=== PATIENT | male | born 1970 ===

== ENCOUNTER 2024-03-05 07:06 | Emergency (ER) | payer OTHER, SELFPAY ==
[2024-03-05 07:18] VITALS: BP 100/64
[2024-03-05 07:37] LABS: % Basophils 0.4 % (0-2); % Eosinophils 1.1 % (0-6); % Immature Granulocytes 0.2 % (0-0.5); % Lymphocytes 8.6 % (20.5-51.1); % Monocytes 8.4 % (1.7-9.3); % Neutrophils 81.3 % (42.2-75.2); Absolute Eosinophils 0.1 10^3/uL (0-0.7); Absolute Lymphocytes 0.4 10^3/uL (1.2-3.4); Absolute Monocytes 0.4 10^3/uL (0.1-0.6); Absolute Neutrophils 3.9 10^3/uL (1.4-6.5); Hematocrit 35.7 % (39.0-52.0); Hemoglobin 12.9 g/dL (13.0-18.0); Mean Corp Hgb Conc. 36.1 g/dL (33.0-37.0); Mean Corpuscular Hgb 30.6 pg (27.0-31.0); Mean Corpuscular Volume 84.6 fL (80.0-94.0); Mean Platelet Volume 8.8 fL (7.4-10.4); Nucleated Red Blood Cells % 0 % (-); Platelet Count 221 10^3/uL (130-400); Red Blood Cell Count 4.22 10^6/uL (4.70-6.10); Red Cell Dist. Width 12.8 % (11.5-14.5); White Blood Cell Count 4.7 10^3/uL (4.8-10.8)
[2024-03-05 07:57] LABS: ALT (SGPT) 32 U/L (0-50); AST (SGOT) 28 U/L (17-59); Alkaline Phosphatase 48 U/L (38-126); Blood Urea Nitrogen 15 mg/dl (9-20); Calcium 8.9 mg/dl (8.4-10.2); Carbon Dioxide 23 mmol/L (22-30); Chloride 100 mmol/L (98-107); Glucose 136 mg/dl (70-99); Potassium 3.9 mmol/L (3.5-5.1); Sodium 133 mmol/L (135-145); Total Bilirubin 0.4 mg/dl (0.2-1.3); Total Protein 6.5 g/dl (6.3-8.2); eGFR > 60.00
[2024-03-05 08:01] LABS: Troponin I < 0.012 ng/ml
[2024-03-05 08:06] LABS: COVID-19 Antigen Negative (Negative)
--- NOTE | 2024-03-05 08:23 | ED.GENMED ---
History of Present Illness
General
Chief Complaint: Fever
Source: patient
Time Seen by Provider: 03/05/24 08:11
History of Present Illness
History of Present Illness:
This patient is a 53-year-old male describes a 24-hour history of bodyaches, headache, fatigue, and generalized malaise. He also notes mild rhinorrhea and nausea. He denies vomiting, diarrhea, shortness of breath. He says he started to feel a
little bit of discomfort across his chest associated with the body aches which made him prompted to come here. He denies chest discomfort currently. He denies associated diaphoresis, neck pain, jaw pain, back pain, shoulder pain. He is eating
very little but is tolerating fluids. He has been taking Tylenol and DayQuil for his symptoms. He notes that he was just on a 8-hour flight back from [place] and noted a lot of people on the flight were coughing and ill near him. He denies calf
swelling, pleuritic chest pain, hemoptysis, or shortness of breath. Patient did not get immunized for influenza
Past History
Past History
ED Past Medical History: CAD (Stent placed August 2013), Hypercholesterolemia and Psychiatric (anxiety)
ED Past Surgical History: Cardiac (PTCA with stent 2013) and Orthopedic
Social History
Tobacco: Non-smoker
Alcohol: Occasional
Drug: None
Personal: Single
Employment: Employed
Family History
Family History: Early CAD
Phy Exam
Physical Exam
Physical Exam:
GENERAL: Awake but tired appearing, in no apparent distress
EYE: pupils equal and reactive, no photophobia
NECK: Supple, no significant adenopathy.
ENT: o/p clr, mmm.
CARDIAC: Regular rate and rhythm .
LUNGS: Clear breath sounds bilaterally, no acute respiratory distress, no wheezes/rales/rhonchi
ABDOMEN: Soft, without focal tenderness, no r/g, no cvat
NEUROLOGICAL: Alert and oriented, no focal neuro deficits, no meningismus
SKIN: Warm and dry, skin intact.
MUSCULOSKELETAL: No edema, well perfused.
PSYCH: Normal and appropriate interaction.
Course
Orders/Labs/Results
Orders:
Orders
03/05/24 07:14
Electrocardiogram (*1) Urgent
Reason for Study: Chest Pain
EKG- Treatment ONCE
03/05/24 07:27
COVID-19 Antigen Urgent
Source: Nasal Swab
Complete Blood Count/With Diff Urgent
Comprehensive Metabolic Panel Urgent
Troponin I Urgent
Influenza A+B Rapid Molecular Urgent
MARCY Source: Nasal Swab
Specimen Description:
Abnormal Lab Results
03/05/24
07:27
WBC 4.7 L 10^3/uL
(4.8-10.8)
RBC 4.22 L 10^6/uL
(4.70-6.10)
Hgb 12.9 L g/dL
(13.0-18.0)
Hct 35.7 L %
(39.0-52.0)
Absolute Lymphs (auto) 0.4 L 10^3/uL
(1.2-3.4)
Neutrophils % 81.3 H %
(42.2-75.2)
Lymphocytes % 8.6 L %
(20.5-51.1)
Sodium 133 L mmol/L
(135-145)
Glucose 136 H mg/dl
(70-99)
03/05/24 07:27
03/05/24 07:27
Vital Signs
Initial and Last Documented VS:
Initial Vital Signs
Temp Pulse Resp BP Pulse Ox
99.7 F 88 18 100/64 97
03/05/24 07:18 03/05/24 07:18 03/05/24 07:18 03/05/24 07:18 03/05/24 07:18
Last Documented Vital Signs
Temp Pulse Resp BP Pulse Ox
99.7 F 88 18 100/64 97
03/05/24 07:18 03/05/24 07:18 03/05/24 07:18 03/05/24 07:18 03/05/24 07:18
*Critical Care Note
Total Time (30-74mins, 75-104mins- exclusive of procedures): Not Applicable
Update Note
Update Note:
Patient presents to the Emergency Department with bodyaches, intermittent fever, headache
Number and Complexity of Problems Addressed at the Encounter
� Chronic conditions affecting care:
� Acute Exacerbation and/or Progression of Chronic Illness:
� Differential Diagnosis includes: But not limited to COVID, influenza, viral illness, meningitis, etc. etc.
Amount and/or Complexity of Data to be Reviewed and Analyzed
� I performed an independent evaluation of and my interpretation is:
EKG: Read by me, normal sinus rhythm, normal rate, normal axis, no acute ischemia
CT:
Xrays:
Laboratory Studies: Mild neutropenia, patient made aware of and need for follow-up concerning, influenza A positive
Other:
� Review of other/old records reveals: 2020 patient was hospitalized for an epidural spine injection
� Clinical information was obtained by an independent historian:
� Prescriptions/Medications Considered but not given:
� Further testing considered but not performed:
Risk of Complications and/or Morbidity or Mortality of Patient Management
� Social determinants of health affecting care:
� Discussion with other providers (PCP, Hospitalists, Consultants, etc):
� Escalation of care including admission/observation vs risk of discharge considered: Patient does not exhibit typical stigmata of meningitis/encephalitis, no meningismus noted. Symptoms, history, physical all consistent with
diagnosis of influenza A. Her scribe Tamiflu given symptoms less than 48 hours. Discussed with patient importance of follow-up, reasons to return to the ER, supportive care, etc.
ED Attending Note
-
Portions of this chart may have been created with voice recognition software.� Occasional wrong word or��sound alike� substitutions may have occurred due to the inherent limitations of voice recognition software.
Discharge Plan
Departure
Patient Disposition: Home (Routine Discharge)
Date of Disposition: 03/05/24
Time of Disposition: 08:25
Patient with high blood pressure during this ER visit?: No
Condition: Good
Discharge Problem:
Influenza A
Instructions: Flu in adults - Discharge instructions
Prescriptions:
New
oseltamivir [Tamiflu] 75 mg capsule
75 mg PO BID Qty: 10 0RF
No Action
atorvastatin 40 MG tablet
40 mg PO DAILY
aspirin 81 MG tablet,delayed release (DR/EC)
81 mg PO HS
lisinopril 10 MG tablet
10 mg PO DAILY
oxycodone-acetaminophen 5 MG/325 MG tablet
1 tab PO BIDPRN PRN (Reason: moderate to severe pain)
Patient Comments:
04/17/2019: Filled 04/04/19 60 for 30 days at [facility] [phone]
alprazolam 0.5 MG tablet
0.5 mg PO DAILYPRN PRN (Reason: anxiety)
Patient Comments:
04/17/2019: Filled 04/12/19 30 for 15 days at [facility] [phone]
nitroglycerin 0.4 MG tablet, sublingual
0.4 mg sublingual [id number] PRN (Reason: chest pain)
cyclobenzaprine 10 MG tablet
10 mg PO TID PRN (Reason: muscle spasm ) Qty: 0 0RF
polyethylene glycol 3350 17 GRAMS powder in packet
17 grams PO DAILY Qty: 30 0RF
gabapentin 400 MG capsule
800 mg PO TID Qty: 84 0RF
lidocaine 1 PATCH adhesive patch,medicated
3 patch topical DAILY 0RF
Activity Restrictions/Additional Instructions:
IF YOU DEVELOP SEVERE CHEST PAIN, ANY TROUBLE BREATHING, REPEATED VOMITING, NECK STIFFNESS, GET WORSE, DO NOT GET BETTER, OR OTHER WORRISOME SIGNS, PLEASE RETURN TO THE ER IMMEDIATELY.
Interventions
Interventions:
*Risk Screen - Suicide Last Done: 03/05/24 07:18
*General Assessment Last Done: 03/05/24 07:18
Discharge Date and Time
Print Language: CITIZEN OF [place]
[2024-03-05] MEDS: TAMIFLU 75 MG PO (08:38)
== END 2024-03-05 08:44 | disposition home or self-care (01) ==
LOC: EMR 07:06
PROVIDERS: Emergency Medicine; EMERGENCY PHYSICIAN Emergency Medicine; FAMILY PHYSICIAN Internal Medicine
DX: J10.1 Influenza due to other identified influenza virus with other respiratory manifestations (principal); I25.10 Atherosclerotic heart disease of native coronary artery without angina pectoris; E78.00 Pure hypercholesterolemia, unspecified; F41.9 Anxiety disorder, unspecified; Z82.49 Family history of ischemic heart disease and other diseases of the circulatory system; Z95.5 Presence of coronary angioplasty implant and graft
CPT/HCPCS: 99283; 80053; 84484; 85025; 87502; 87811; 93005